=== PATIENT | female | born 1940 | race Caucasian/White ===

== ENCOUNTER → 2016-11-04 09:55 | Outpatient (CLI) | payer MEDICARE ==
[2015-07-19 12:18] VITALS: BMI 23.0
[~2016-11-04 09:55] MED LIST: ADVIL200 MG PO; CALCIUM 500 + D1 TAB PO; HYDROCHLOROTHIA25 MG PO; MEDROL DOSE PACK4 MG PO; PRILOSEC20 MG PO; TESSALON PERLE100 MG PO; VITAMIN B-121000 MCG PO; VITAMIN D31000 UNIT PO; ZOCOR20 MG PO; ZOLOFT100 MG PO
== END | disposition home or self-care (01) ==
LOC: D.CT 09:00 → D.MRI 09:55 → D.CT 10:30
DX: R42 Dizziness and giddiness (principal); Z86.73 Personal history of transient ischemic attack (TIA), and cerebral infarction without residual deficits

== ENCOUNTER → 2016-12-18 07:54 | Outpatient (CLI) | payer MEDICARE ==
[2015-07-19 12:18] VITALS: BMI 23.0
== END ==
LOC: D.MRI 07:54
DX: R16.0 Hepatomegaly, not elsewhere classified (principal)

== ENCOUNTER 2016-12-24 05:31 | Outpatient (CLI) | payer MEDICARE ==
[~2016-12-24] VITALS: Ht 160 cm; Wt 60.5 kg
[2016-12-24] MEDS ORDERED: BAYER CHEWABLE81 MG PO (06:19)
[2016-12-24] MEDS ORDERED: PLAVIX75 MG PO (06:19)
[2016-12-24 06:20] LABS: BASOPHILS 0.5 % (0-2); EOSINOPHILS 3.5 % (0-7); HEMATOCRIT 37.4 % (36.0-48.0); HEMOGLOBIN 12.1 g/dL (12-16); LYMPHOCYTES 27.1 % (15-50); MCH 29.4 pg (26.0-34.0); MCHC 32.4 g/dL (31.0-37.0); MEAN PLATELET VOLUME 10.9 fL (7.4-10.4); MONOCYTES 11.8 % (2-11); NEUTROPHILS 57.1 % (40-80); PLATELET COUNT 191 10x3/uL (130-400); RBC 4.11 10x6/uL (4.00-5.40); RDW 13.2 % (11.5-14.5); WBC 4.3 10x3/uL (4.8-10.8)
[2016-12-24] MEDS ORDERED: ZOFRAN4 MG PO (06:21)
[2016-12-24] MEDS ORDERED: CELEXA10 MG PO (06:21)
[2016-12-24] MEDS ORDERED: ACETAMINOPHEN325 MG PO (06:22)
[2016-12-24 06:29] VITALS: BP 137/67; Ht 160 cm; Wt 60.5 kg
[2016-12-24 06:31] LABS: APTT 32.4 SECONDS (22.8-39.4)
[2016-12-24 06:33] LABS: CALCIUM 10.3 mg/dL (8.5-10.1); CARBON DIOXIDE 30.6 mmol/L (21.0-32.0); CREATININE - SERUM 0.8 mg/dL (0.6-1.3); POTASSIUM - SERUM 3.6 mmol/L (3.5-5.1)
[2016-12-24 06:48] LABS: INR 0.96 (0.85-1.17); PROTIME 12.6 SECONDS (11.6-15.0)
--- NOTE | 2016-12-24 09:31 | NUR ---
0900--ALL VITAL SIGNS CHARTED ON POST PROCEDURE VITAL SIGN SHEET ON CHART. JD ESCALONA
--- NOTE | 2016-12-24 09:44 | NUR ---
0910--PT REPORTS BEING NAUSEATED AFTER REPOSTIONING IN BED, LIBBY SHEPPARD RN CALLED AND REPORT GIVEN. NEW ORDER RECIEVED. JD ESCALONA 0918--ZOFRAN 4MG GIVEN SIVP. JD ESCALONA 0929--BREAKFAST TRAY SERVED, PT ENCOURAGED TO EAT VERY SLOW. WILL CONTINUE TO MONITOR. JD ESCALONA
--- NOTE | 2016-12-24 12:26 | NUR ---
1205--PT UP TO THE BATHROOM, VOIDS WITHOUT DIFFICULTY. WILL CONTINUE TO MONITOR. ELIZABETHRAMURIEL RN
--- NOTE | 2016-12-24 12:56 | NUR ---
1255--IV DC'D, PT UP TO DRESS AT THIS TIME. JD RN
--- NOTE | 2016-12-24 13:08 | NUR ---
1307--DISCHARGE INSTRUCTIONS GIVEN, PT VERBALIZES UNDERSTANDING. PT OFF UNIT VIA KYLE. JD ESCALONA
[2016-12-25] MEDS ORDERED: ZOLOFT25 MG PO (01:01)
== END 2016-12-24 13:07 | disposition home or self-care (01) ==
LOC: D.OPS 05:31 → D.CT 08:00 → D.OPS 08:00
PROVIDERS: Specialist
DX: R16.0 Hepatomegaly, not elsewhere classified (principal)

== ENCOUNTER 2016-12-24 14:46 | Inpatient (IN) | payer MEDICARE ==
[~2016-12-24] VITALS: Ht 172.7 cm; Wt 78.0 kg
--- NOTE | ~2016-12-24 | CN ---
PATIENT NAME:LETICIA MONROY MEDICAL RECORD: [id number] : 36 LOCATION:BUD.2308 ADMIT DATE: 12/24/16 ACCOUNT: [id number] CONSULTING PHYSICIAN: REDDY SCOTT MD REFERRING PHYSICIAN: LUDA DORSEY DO DATE OF CONSULTATION: 12/25/2016 CONSULT REQUESTING PHYSICIAN: Luda Dorsey DO REASON FOR CONSULTATION: Questionable PE. HISTORY OF PRESENT ILLNESS: Ms. Monroy is a 76-year-old female, who has a history of COPD, not home oxygen dependent. The patient having a fall yesterday and having fractured left hip, she underwent a hip fixation today. Postop, the patient was severely hypoxic and PE was suspected. Now, the patient is awake, but she is confused post-anesthesia. The history was taken mainly by talking to the nursing staff and reviewing the patient note. REVIEW OF SYSTEMS: As in history of present illness. PAST MEDICAL HISTORY: 1. History of breast cancer. 2. Coronary artery disease. 3. Anxiety, depression. 4. History of liver mass. 5. Chronic obstructive pulmonary disease. PAST SURGICAL HISTORY: 1. She had a cataract surgery. 2. Mastectomy 25 years ago. 3. She is status post liver biopsy. 4. Now, she is status post left ORIF. ALLERGIES: There are no known drug allergies. PRESENT MEDICATIONS: On [employer] was reviewed. PERSONAL AND SOCIAL HISTORY: The patient is an ex-smoker. She is a nondrinker. She is , lives with her . FAMILY HISTORY: Noncontributory. PHYSICAL EXAMINATION: GENERAL: Now, the patient is lying comfortably. She is not in acute distress. VITAL SIGNS: The blood pressure is 142/59, pulse is 96, respirations 26, temperature 98.4 and SPO2 is 93% on 15 liters Venturi mask. HEENT: Conjunctivae are pink. Sclerae nonicteric. NECK: Supple. No JVD. CHEST: There are bilateral crackles, wheeze on forceful expiration. HEART: Rhythm regular, normal sound, no murmur. ABDOMEN: Soft. Bowel sounds present. No hepatosplenomegaly. RECTAL: Deferred. EXTREMITIES: No cyanosis, no clubbing and no pedal edema. SKIN: Warm, normal turgor. CENTRAL NERVOUS SYSTEM: There is no obvious cranial nerve abnormality. The CONSULT REPORT [id number] LETICIA MONROY patient is awake, but she is confused post-anesthesia. LABORATORY DATA: CBC: The WBC is 7.8, hemoglobin 11.3, hematocrit 34.7 and the platelet count is 165. Chemistry: Sodium 142, potassium 3.4, BUN is 14, creatinine is 0.6 and glucose 115. IMPRESSION: 1. Acute hypoxic respiratory failure, possible secondary to pulmonary edema, possible underlying pneumonia, rule out pulmonary embolism. 2. Blood loss anemia. 3. Chronic obstructive pulmonary disease with acute exacerbation. 4. Status post left open reduction and internal fixation. RECOMMENDATIONS: 1. Albuterol and ipratropium nebulizer q.i.d., start on Brovana and budesonide nebulizer. 2. Start her on empiric doxycycline 100 mg b.i.d. 3. Lasix 40 mg IV times 1. 4. We will check the CTA of the chest, if it is positive, we will start her on Lovenox. Dr. Milligan, thank you for involving me in the care of Ms. Monroy. TRANSINT:[id number] Voice Confirmation ID: [id number] DOCUMENT ID: [id number] REDDY SCOTT MD CC: NELSON MILLIGAN MD [id number] DICTATION DATE: 12/25/161734 FLORICULTURE TEACHER: 12/26/16 0147 ADM IN [facility] [address] [place] [address]
--- NOTE | ~2016-12-24 | EC ---
PATIENT:LETICIA FLETCHER DATE OF SERVICE: 12/24/16 SEX: F MEDICAL RECORD: [id number] DATE OF : 36 LOCATION:[facility] D230 AGE OF PATIENT: 76 ADMISSION DATE: 12/24/16 REFERRING PHYSICIAN: INTERPRETING PHYSICIAN: JOEL MATA MD ECHOCARDIOGRAM REPORT ECHO CHARGES 4 ECHO COMPLETE CLINICAL DIAGNOSIS: RESP FAILURE HX HTN ECHOCARDIOGRAPHIC MEASUREMENTS (adult normal given) AC root (d.<3.7cm) 3.3 LV Septum d (<1.2 cm> 1.6 Valve Excursion 1.8 LV Septum (systole) 1.8 Left Atria (s.<4.0cm> 3.7 LVPW d(<1.2cm) 1.6 RV (d.<2.3cm) 3.2 LVPW (sytole) 1.9 LV diastole(<5.6CM) 3.8 MV E-F(>70mm/sec) LV systole 2.4 LVOT Diameter 1.8 MV exc.(>10mm) 1.3 Est.ejection fraction (50-75%) Pericardial Effusion N DOPPLER: LVIT A 140 E 86.0 LA RVSP 33 LVOT 105 AOP1/2T Asc. Ao 156 RVOT 119 RA PA 158 AV Gradient Peak 9.73 AV Mean 4.70 AV Area 1.9 MV Gradient Peak 7.64 MV Mean 2.69 MV Area COMMENTS: Inspecting And Testing Lead Hand: Tasha ROSS Stock Speculator:Jackie Mata TAPE# PACS DATE OF SERVICE: 12/26/2016 FINDINGS: 1. Left ventricular chamber size is within normal limits. Left ventricular systolic function is normal. Overall ejection fraction estimated at 65%. 2. Left atrium, right atrium, and right ventricular chamber sizes are within normal limits. 3. Valvular structures have normal structure and motion. 4. Doppler interrogation reveals only mild tricuspid regurgitation, no other valvular insufficiency or stenosis. ECHOCARDIOGRAM REPORT [id number] LETICIA FLETCHER 5. No evidence of pericardial effusion or left ventricular thrombus. TRANSINT:[id number] Voice Confirmation ID: [id number] DOCUMENT ID: [id number] JOEL MATA MD CC: [id number] DICTATION DATE: 12/26/16 1309 REGISTRATION MANAGER: 12/26/16 1336 ADM IN [place] [address] [place] [address]
[~2016-12-24 14:46] MED LIST changes: +ACETAMINOPHEN325 MG PO; +BAYER CHEWABLE81 MG PO; +CELEXA10 MG PO; +PLAVIX75 MG PO; +ZOFRAN4 MG PO
[2016-12-24 16:56] LABS: BASOPHILS 0.2 % (0-2); EOSINOPHILS 0.7 % (0-7); HEMATOCRIT 38.1 % (36.0-48.0); HEMOGLOBIN 12.5 g/dL (12-16); IMMATURE GRANULOCYTES 0.2 % (0-5); LYMPHOCYTES 8.2 % (15-50); MCH 29.8 pg (26.0-34.0); MCHC 32.8 g/dL (31.0-37.0); MCV 90.9 fL (80.0-100.0); MEAN PLATELET VOLUME 9.7 fL (7.4-10.4); MONOCYTES 5.4 % (2-11); NEUTROPHILS 85.3 % (40-80); PLATELET COUNT 198 10x3/uL (130-400); RBC 4.19 10x6/uL (4.00-5.40); RDW 13.3 % (11.5-14.5)
[2016-12-24 17:02] LABS: WBC 9.1 10x3/uL (4.8-10.8)
[2016-12-24 17:34] LABS: ALBUMIN 3.6 g/dL (3.4-5.0); ALKALINE PHOSPHATASE 96 U/L (46-116); ALT (SGPT) 17 U/L (10-68); BILIRUBIN - TOTAL 0.31 mg/dL (0.2-1.3); CALC OSMOLALITY 283 mosm/kg (275-300); CALCIUM 9.8 mg/dL (8.5-10.1); CARBON DIOXIDE 27.7 mmol/L (21.0-32.0); CHLORIDE - SERUM 104 mmol/L (98-107); CREATININE - SERUM 0.7 mg/dL (0.6-1.3); GLUCOSE 112 mg/dL (74-106); POTASSIUM - SERUM 3.3 mmol/L (3.5-5.1); PROTEIN - SERUM 7.1 g/dL (6.4-8.2); SODIUM 141 mmol/L (136-145); UREA NITROGEN 19 mg/dL (7-18); eGFR NON AFRICAN AMERICAN 86 mL/min (90-120)
[2016-12-24 17:43] LABS: APTT 37.8 SECONDS (22.8-39.4); INR 0.95 (0.85-1.17); PROTIME 12.5 SECONDS (11.6-15.0)
[2016-12-24 17:50] LABS: APPEARANCE CLEAR (CLEAR); BILIRUBIN NEGATIVE (NEGATIVE); COLOR YELLOW (YELLOW); GLUCOSE NEGATIVE (NEGATIVE); KETONE NEGATIVE (NEGATIVE); LEUKOCYTE ESTERASE NEGATIVE (NEGATIVE); NITRITE NEGATIVE (NEGATIVE); PROTEIN TRACE mg/dL (NEGATIVE); UROBILINOGEN NORMAL (NORMAL)
[2016-12-24 17:51] LABS: EPITHELIAL CELLS 0-5 /hpf (0-5); WHITE CELLS - URINE 0-5 /hpf (0-5)
[2016-12-24 17:53] LABS: BACTERIA FEW /hpf (NONE SEEN)
[2016-12-24 20:00] VITALS: BP 149/68
[2016-12-24 23:35] VITALS: BP 160/63; BMI 26.2
[2016-12-25] VITALS (15 sets, daily range): BP systolic 122–159; BP diastolic 50–78; Ht 172.7 cm; Wt 78.0 kg
--- NOTE | 2016-12-25 01:00 | NUR ---
PT RESTLESS AND ANXIOUS. PULLED OUT RIGHT FOREARM IV. RESITED TO RIGHT AC BY IQRA MCGUIRE. PIPE FITTER SUPERVISOR MAINTENANCE AND ICE FOR PAIN CONTROL. REPOSITIONED AND TURNED PT. NO OTHER NEEDS WILL CONTINUE TO MONITOR.
[2016-12-25] MEDS ORDERED: ZOLOFT25 MG PO (01:01)
--- NOTE | 2016-12-25 08:08 | NUR ---
AWAKE AND ALERT. ORIENTED X3. C/O SOME PAIN THIS AM TO LEFT HIP. ENCOURAGED TO USE ALTERNATIVE ENERGY TECHNICIAN FOR PAIN MANAGEMENT. LUNGS ARE CLEAR BILATERLLY, NO COUGH NOTED. SKIN IS INTACT WITHOUT REDNESS. IV TO RIGHT AC IS PATENT WITHOUT REDNESS AT INSERTION SITE. BANG PATENT WITH CLEAR YELLOW URINE. DENIES NEEDS. VERY HUNGRY THIS AM.
--- NOTE | 2016-12-25 09:51 | NUR ---
TOOK AM MEDS WITH SMALL SIP WATER. HAD DRY HEAVES AFTERWARDS. NO C/O NAUSEA AT THIS TIME.
[2016-12-25 10:04] LABS: BASOPHILS 0.3 % (0-2); HEMATOCRIT 34.7 % (36.0-48.0); HEMOGLOBIN 11.3 g/dL (12-16); IMMATURE GRANULOCYTES 0.3 % (0-5); LYMPHOCYTES 8.5 % (15-50); MCH 29.6 pg (26.0-34.0); MCHC 32.6 g/dL (31.0-37.0); MCV 90.8 fL (80.0-100.0); MEAN PLATELET VOLUME 10.3 fL (7.4-10.4); MONOCYTES 8.6 % (2-11); NEUTROPHILS 81.3 % (40-80); PLATELET COUNT 165 10x3/uL (130-400); RBC 3.82 10x6/uL (4.00-5.40); RDW 13.5 % (11.5-14.5); WBC 7.8 10x3/uL (4.8-10.8)
[2016-12-25 10:23] LABS: ALBUMIN 3.2 g/dL (3.4-5.0); ALKALINE PHOSPHATASE 77 U/L (46-116); ALT (SGPT) 16 U/L (10-68); CALC OSMOLALITY 284 mosm/kg (275-300); CALCIUM 9.9 mg/dL (8.5-10.1); CARBON DIOXIDE 30.2 mmol/L (21.0-32.0); CHLORIDE - SERUM 106 mmol/L (98-107); CREATININE - SERUM 0.6 mg/dL (0.6-1.3); GLUCOSE 115 mg/dL (74-106); POTASSIUM - SERUM 3.4 mmol/L (3.5-5.1); PROTEIN - SERUM 7.1 g/dL (6.4-8.2); SODIUM 142 mmol/L (136-145); eGFR NON AFRICAN AMERICAN > 90 mL/min (90-120)
[2016-12-25 10:28] LABS: UREA NITROGEN 14 mg/dL (7-18)
--- NOTE | 2016-12-25 12:11 | NUR ---
RESTING QUIETLY WITH EYES CLOSED. DENIES NEEDS.
--- NOTE | 2016-12-25 13:50 | NUR ---
OFF UNIT VIA BED TO SURGERY.
--- NOTE | 2016-12-25 16:38 | NUR ---
PATIENT HERE FROM RECOVERY. SHE IS ALERT AND CONFUSED. BLOOD CAME WITH PATIENT THAT WAS CHECKED FROM THE LAB AT 1452. SPOKE WITH TERESA IN THE BLOOD BANK WHO SAID THAT THE BLOOD DOES NOT AND CAN STILL BE GIVEN EVEN THOUGH OUR POLICY IS TO HAVE IN IN 4 HOURS FROM PICKUP. WILL CHECK OFF THE BLOOD WITH CHANDLER AND HANG IT.
--- NOTE | 2016-12-25 16:55 | NUR ---
PATIENTS UNIT OF BLOOD ([id number]) STARTED AFTER SAFETY CHECK WITH IQRA ARTEAGA TO A NEWLY STARTED 20G IV IN THE RIGHT OUTTER FOREARM. PATIENT AND SPOUSE DENIES QUESTIONS. PATIENT IS C/O PAIN TO HER HIP WILL LOOK AT PRN MEDICATIONS. THERE IS ICE IN PLACE TO AN INTACT DRESSING TO LEFT HIP. VENTIMASK AT 55% IN USE, SATS HOLDING AROUND 96%. LUNGS WITH END EXPIRATORY WHEEZES. NONPRODUCTIVE COUGH NOTED. HAVE SPOKE WITH DR SCOTT, NEW ORDERS RECEIVED.
--- NOTE | 2016-12-25 19:00 | NUR ---
ASSESSMENT COMPLETED. SEE FLOW SHEETS FOR ALL FINDINGS. PT ALERT AND ORIENTED X3, BUT CONFUSED WITH SITUATION. REORIENTED. C/O PAIN TO LEFT HIP. REPOSITIONED FOR COMFORT. ACTIVITIES LEADER PUMP STARTED PER ORDER. INSTRUCTED PT TO PUSH WHEN SHE NEEDS FOR PAIN. VERBALIZED UNDERSTANDING. LEFT HIP DRESSING C,D. ICE PACK APPLIED. PPP. CALL LIGHT IN REACH. WILL CONT TO MONITOR.
--- NOTE | 2016-12-25 21:10 | NUR ---
NO VISITORS AT THIS TIME, WILL CON'T TO MONITOR
--- NOTE | 2016-12-25 23:10 | NUR ---
REASSESSMENT COMPLETE, NO CHANGES NOTED, PT REPOSITIONED FOR COMFORT, NO OTHER NEEDS NOTED, WILL CON'T TO MONITOR
[2016-12-26] VITALS (18 sets, daily range): BP systolic 99–147; BP diastolic 45–69
--- NOTE | 2016-12-26 01:00 | NUR ---
PT RESTING QUIETLY WITHOUT DISTRESS. VSS. REPOSITIONED FOR COMFORT. CALL LIGHT IN REACH. CPOC.
--- NOTE | 2016-12-26 03:00 | NUR ---
REASSESSMENT COMPLETED. SEE FLOW SHEETS FOR ALL FINDINGS. VSS. NO ACUTE CHANGES IN PT'S STATUS. REPOSITIONED FOR COMFORT. PILLOWS IN USE FOR SUPPORT. CALL LIGHT IN REACH. WILL CONT TO MONITOR.
[2016-12-26 04:50] LABS: BASOPHILS 0.3 % (0-2); EOSINOPHILS 0.5 % (0-7); HEMATOCRIT 35.3 % (36.0-48.0); HEMOGLOBIN 11.5 g/dL (12-16); IMMATURE GRANULOCYTES 0.3 % (0-5); LYMPHOCYTES 9.3 % (15-50); MCH 29.6 pg (26.0-34.0); MCHC 32.6 g/dL (31.0-37.0); MEAN PLATELET VOLUME 10.5 fL (7.4-10.4); MONOCYTES 10.6 % (2-11); PLATELET COUNT 146 10x3/uL (130-400); RBC 3.88 10x6/uL (4.00-5.40); RDW 13.4 % (11.5-14.5); WBC 7.9 10x3/uL (4.8-10.8)
--- NOTE | 2016-12-26 05:00 | NUR ---
REPOSITIONED PT FOR COMFORT. PT SCREAM OUTLOUD WITH ANY TURN. ENCOUREGED TO PRESS ON HYDRAULIC ELEVATOR CONSTRUCTOR. PT USED HYDRAULIC ELEVATOR CONSTRUCTOR PUSH. VSS.CPOC.
[2016-12-26 05:02] LABS: ALBUMIN 3.2 g/dL (3.4-5.0); ALKALINE PHOSPHATASE 78 U/L (46-116); ALT (SGPT) 17 U/L (10-68); BILIRUBIN - TOTAL 0.58 mg/dL (0.2-1.3); CALC OSMOLALITY 275 mosm/kg (275-300); CALCIUM 9.5 mg/dL (8.5-10.1); CHLORIDE - SERUM 99 mmol/L (98-107); CREATININE - SERUM 0.7 mg/dL (0.6-1.3); GLUCOSE 117 mg/dL (74-106); PROTEIN - SERUM 6.5 g/dL (6.4-8.2); SODIUM 138 mmol/L (136-145); UREA NITROGEN 10 mg/dL (7-18); eGFR NON AFRICAN AMERICAN 86 mL/min (90-120)
--- NOTE | 2016-12-26 07:00 | NUR ---
REPORT RECEIVED. ASSESSMENT COMPLETED. PATIENT SATING 84% ON ROOM AIR. WITH ENCOURAGEMENT, PATIENT ALLOWED ME TO PUT HER OXYGEN BACK ON AND HER SATS INCREASED TO 94%. WILL CONTINUE TO MONITOR.
--- NOTE | 2016-12-26 13:37 | NUR ---
PATIENT WAS TURNED TO HER RIGHT SIDE AND IN LESS THAN 10 MINUTES, SHE HAS REMOVED THE PILLOW AND IS BACK ON HER BACK. WILL CONTINUE TO EXPLAIN THE IMPORTANCE OF TURNING AND TRYING TO TURN AND KEEP HER TURNED.
--- NOTE | 2016-12-26 15:45 | NUR ---
REPORT CALLED TO IQRA NINO ON MED SURG. SHE WILL TRANSFER VIA BED TO ROOM 2236.
--- NOTE | 2016-12-26 16:50 | NUR ---
SPOKE WITH MR FLETCHER. EXPLAINED THAT THE PATIENT WAS BEING TRANSFERED OUT TO THE FLOOR. HE STATED HE WOULD BE UP AROUND 6 AND HER NEW ROOM NUMBER WAS GIVEN TO HIM.
--- NOTE | 2016-12-26 17:29 | NUR ---
PATIENT RECEIVED TO FLOOR FROM ICU VIA BED. NO SIGNS OF DISTRESS NOTED. ORIENTED TO ROOM. YELLOW FALL RISK BAND PLACED ON PATIENT. SCD ON BILATERALLY. BED ALARM ON. FAMILY AT BEDSIDE. SIDE RAILS UP X2. BED IN LOW POSITION. CALL LIGHT IN REACH.
--- NOTE | 2016-12-26 19:25 | NUR ---
PT RESTING WITH EYES CLOSED, EASILY AROUSED, ASSESSMENT COMPLETED, NO ACUTE DISTRESS NOTED, NC AND SCD'S IN PLACE, BED ALARM ON, CL IN REACH, WILL MONITOR
--- NOTE | 2016-12-26 21:12 | NUR ---
MEDS GIVEN PER MAR, SUHAIL WELL, FALL PRECAUTIONS IN PLACE, CL IN REACH
[2016-12-27] VITALS: BP 140/60
[2016-12-27 04:00] VITALS: BP 121/45
[2016-12-27 07:03] LABS: BASOPHILS 0.1 % (0-2); EOSINOPHILS 1.1 % (0-7); HEMATOCRIT 32.8 % (36.0-48.0); HEMOGLOBIN 10.7 g/dL (12-16); IMMATURE GRANULOCYTES 0.3 % (0-5); LYMPHOCYTES 8.7 % (15-50); MCH 29.4 pg (26.0-34.0); MCHC 32.6 g/dL (31.0-37.0); MCV 90.1 fL (80.0-100.0); MEAN PLATELET VOLUME 10.7 fL (7.4-10.4); MONOCYTES 9.6 % (2-11); NEUTROPHILS 80.2 % (40-80); PLATELET COUNT 152 10x3/uL (130-400); RBC 3.64 10x6/uL (4.00-5.40); RDW 13.3 % (11.5-14.5); WBC 7.3 10x3/uL (4.8-10.8)
[2016-12-27 07:25] LABS: ALBUMIN 2.4 g/dL (3.4-5.0); ALKALINE PHOSPHATASE 70 U/L (46-116); ALT (SGPT) 14 U/L (10-68); BILIRUBIN - TOTAL 0.58 mg/dL (0.2-1.3); CALC OSMOLALITY 272 mosm/kg (275-300); CALCIUM 9.5 mg/dL (8.5-10.1); CARBON DIOXIDE 31.3 mmol/L (21.0-32.0); CHLORIDE - SERUM 99 mmol/L (98-107); CREATININE - SERUM 0.6 mg/dL (0.6-1.3); GLUCOSE 148 mg/dL (74-106); PHOSPHOROUS 2.2 mg/dL (2.5-4.9); PROTEIN - SERUM 6.3 g/dL (6.4-8.2); SODIUM 136 mmol/L (136-145); UREA NITROGEN 8 mg/dL (7-18); eGFR NON AFRICAN AMERICAN > 90 mL/min (90-120)
[2016-12-27 07:26] LABS: POTASSIUM - SERUM 2.8 mmol/L (3.5-5.1)
--- NOTE | 2016-12-27 07:35 | NUR ---
PATIENT RESTING IN HER BED. NO S/S OF DISTRESS NOTED. BED ALARM IN PLACE. CALL LIGHT IN PATIENT'S REACH. WILL MONITOR PATIENT.
[2016-12-27 08:39] VITALS: BP 120/49
[2016-12-27 13:11] VITALS: BP 123/43
--- NOTE | 2016-12-27 14:05 | NUR ---
PATIENT IS RESTING IN HER BED. EYES ARE CLOSED. NO S/S OF DISTRESS NOTED. CALL LIGHT IN PATIENT'S REACH. BED ALARM IN PLACE. WILL MONITOR PATIENT.
--- NOTE | 2016-12-27 15:15 | NUR ---
Rehab Prescreening Consult recieved and the chart has been reviewed. She meet criteria for IRF. In light of her post op complication rehab would like to watch her another 24 hours. If she remains stable and is agreeable will plan on acceptance to rehab on Thursday afternoon or Thursday. Thank you for the referral. Christina Baez RN Clinical Liaison, Rehab
--- NOTE | 2016-12-27 15:24 | NUR ---
PATIENT RESTING IN BED. SCHEDULED LASIX 20 MG PO GIVEN TO PATIENT. PATIENT STATES SHE HAS NOT BEEN PRESSING HER FUR EXAMINER DILAUDID BUTTON FOR PAIN.. INSTRUCTED PATIENT ON HER FUR EXAMINER DILAUDID USE. PATIENT VERBALIZED UNDERSTANDING AND SHE PRESSED HER FUR EXAMINER BUTTON. PATIENT DENIES ANY NEEDS AT PRESENT TIME. CALL LIGHT IN PATIENT'S REACH. WILL MONITOR.
[2016-12-27 16:44] VITALS: BP 116/55
[2016-12-27 19:00] VITALS: BP 113/42
--- NOTE | 2016-12-27 20:00 | NUR ---
REC'D IN BED WITH EYES CLOSED EASILY AROUSED WHEN NAME IS CALLED. RESP EVEN AND UNLABORED WITH NO DISTRESS NOTED. ASSESSMENT COMPLETED. C/L IN REACH AT BEDSIDE.
--- NOTE | 2016-12-28 00:29 | NUR ---
PATIENT RESTING WITH EYES CLOSED AND NO VISIBLE SIGNS OF DISTRESS. BED IN LOWEST POSITION AND CALL LIGHT WITHIN REACH.
[2016-12-28 04:00] VITALS: BP 137/59
[2016-12-28 06:14] LABS: BASOPHILS 0.3 % (0-2); EOSINOPHILS 1.9 % (0-7); HEMATOCRIT 30.5 % (36.0-48.0); HEMOGLOBIN 9.8 g/dL (12-16); IMMATURE GRANULOCYTES 0.2 % (0-5); LYMPHOCYTES 11.7 % (15-50); MCH 29.1 pg (26.0-34.0); MCHC 32.1 g/dL (31.0-37.0); MCV 90.5 fL (80.0-100.0); MEAN PLATELET VOLUME 10.4 fL (7.4-10.4); MONOCYTES 14.7 % (2-11); NEUTROPHILS 71.2 % (40-80); RBC 3.37 10x6/uL (4.00-5.40); RDW 13.6 % (11.5-14.5); WBC 5.8 10x3/uL (4.8-10.8)
[2016-12-28 06:18] LABS: PLATELET COUNT 184 10x3/uL (130-400)
[2016-12-28 06:36] LABS: ALBUMIN 2.3 g/dL (3.4-5.0); ALKALINE PHOSPHATASE 87 U/L (46-116); CALC OSMOLALITY 277 mosm/kg (275-300); CALCIUM 9.6 mg/dL (8.5-10.1); CARBON DIOXIDE 32.9 mmol/L (21.0-32.0); CHLORIDE - SERUM 102 mmol/L (98-107); CREATININE - SERUM 0.7 mg/dL (0.6-1.3); GLUCOSE 115 mg/dL (74-106); MAGNESIUM - SERUM 1.9 mg/dL (1.8-2.4); PHOSPHOROUS 2.6 mg/dL (2.5-4.9); PROTEIN - SERUM 6.2 g/dL (6.4-8.2); SODIUM 140 mmol/L (136-145); UREA NITROGEN 8 mg/dL (7-18); eGFR NON AFRICAN AMERICAN 86 mL/min (90-120)
[2016-12-28 06:39] LABS: ALT (SGPT) 18 U/L (10-68); POTASSIUM - SERUM 3.3 mmol/L (3.5-5.1)
--- NOTE | 2016-12-28 08:00 | NUR ---
EDUCATED PATIENT ON USING INCENTIVE SPIROMETER. PATIENT DEMONSTRATED, BROUGHT IT UP TO THE 1500ML KARLOS. EDUCATED PATIENT ON BLADDER TRAINING. CLAMPED BANG CATHETER. TURNED OFF PAPER PRODUCTS MACHINE OPERATOR. TOLD PATIENT TO CALL WHEN SHE FEELS THE URGE TO URINATE.
[2016-12-28 08:14] VITALS: BP 124/58
--- NOTE | 2016-12-28 11:00 | NUR ---
PATIENT STATED SHE NEEDS TO URINATE, GRANADO, ADMINISTRATIVE INTERN UNCLAMPED BANG CATHETER.
--- NOTE | 2016-12-28 11:08 | NUR ---
NORCO PO WITH AM MEDS ADMINISTERED. DR. DORSEY IS IN ROOM TO SEE PATIENT
[2016-12-28] MEDS ORDERED: ALBUTEROL2.5 MG/3 M UPD (11:30)
[2016-12-28] MEDS ORDERED: BROVANA15 MCG/2 M INH (11:30)
[2016-12-28] MEDS ORDERED: IPRAT-ALBUT 0.5-3 ML UPD (11:30)
[2016-12-28] MEDS ORDERED: HYDROCODONE-APA1 TAB PO (11:31)
[2016-12-28] MEDS ORDERED: ELIQUIS2.5 MG PO (11:31)
[2016-12-28] MEDS ORDERED: COLACE100 MG PO (11:32)
[2016-12-28] MEDS ORDERED: PULMICORT0.5 MG/21 UPD (11:32)
[2016-12-28] MEDS ORDERED: LASIX20 MG PO (11:32)
[2016-12-28 12:41] VITALS: BP 131/44
--- NOTE | 2016-12-28 17:00 | NUR ---
D/C BANG CATHETER. D/C IV FROM RIGHT FOREARM WITH CATHETER INTACT. D/C IV FROM RIGHT AC WITH CATHETER INTACT. CHANGED DRESSING TO LEFT HIP, APPLIED AQUACEL DRESSING. DISCHARGE INSTRUCTIONS COMPLETED WITH PATIENT. PATIENT VERBALIZED UNDERSTANDING AND DENIES QUESTIONS.
--- NOTE | 2016-12-28 17:30 | NUR ---
CALLED REPORT TO JANET IN REHAB
--- NOTE | 2016-12-28 18:40 | NUR ---
TRANSFERED PATIENT TO REHAB VIA BED
== END 2016-12-28 18:45 | DRG 480 ==
LOC: D.ER 14:46 → D.ICU 17:21 → D.MS 17:21 → D.ICU 12-25 16:22 → D.MS 12-26 17:10
PROVIDERS: Internal Medicine Pulmonary Disease; Nurse Practitioner Acute Care; Orthopaedic Surgery; ADMIT Family Medicine
PROC: 0QS704Z Reposition Left Upper Femur with Internal Fixation Device, Open Approach (ICD-10-PCS; principal; 2016-12-25 12:15)
DX: S72.002A Fracture of unspecified part of neck of left femur, initial encounter for closed fracture (principal); J96.01 Acute respiratory failure with hypoxia; J44.1 Chronic obstructive pulmonary disease with (acute) exacerbation; D62 Acute posthemorrhagic anemia; F05 Delirium due to known physiological condition; W18.30XA Fall on same level, unspecified, initial encounter; M85.80 Other specified disorders of bone density and structure, unspecified site; Z85.3 Personal history of malignant neoplasm of breast; F41.9 Anxiety disorder, unspecified; I25.10 Atherosclerotic heart disease of native coronary artery without angina pectoris; F32.9 Major depressive disorder, single episode, unspecified; E78.5 Hyperlipidemia, unspecified

== ENCOUNTER 2016-12-28 13:46 | Inpatient (IN) | payer MEDICARE ==
[~2016-12-28] VITALS: Ht 172.7 cm; Wt 60.3 kg
[~2016-12-28 13:46] MED LIST changes: +ALBUTEROL2.5 MG/3 M UPD; +BROVANA15 MCG/2 M INH; +COLACE100 MG PO; +ELIQUIS2.5 MG PO; +HYDROCODONE-APA1 TAB PO; +IPRAT-ALBUT 0.5-3 ML UPD; +LASIX20 MG PO; +PULMICORT0.5 MG/21 UPD; +ZOLOFT25 MG PO
--- NOTE | 2016-12-28 19:10 | NUR ---
IN BED, AWAKE. DENIES CURRENT PAIN OR OTHER NEEDS.
[2016-12-28 19:49] VITALS: BP 119/55; BMI 20.2
--- NOTE | 2016-12-28 21:00 | NUR ---
RESTING IN BED, EYES CLOSED.
--- NOTE | 2016-12-28 23:45 | NUR ---
HS MEDS GIVEN TO PATIENT AT 2315. C/O PAIN LEVEL OF 5/10 IN LEFT HIP AT REST. DEMONSTRATES HIGH LEVEL PAIN WHEN TRANSFERRING. GAVE PATIENT NORCO X1 TAB PO FOR HER PAIN. ADMISSION ASSESSMENT AND HISTORY ARE NOW COMPLETE. ADMISSION DOCUMENTS ARE SIGNED.
--- NOTE | 2016-12-29 02:10 | NUR ---
CONTINUES IN BED ON RIGHT SIDE. RESTING QUIETLY.
--- NOTE | 2016-12-29 04:10 | NUR ---
RESTING QUIETLY IN BED, AFTER ASSIST UP TO BR COMMODE AND BACK TO BED @ 0350. PATIENT NOW ON BACK WITH HOB UP 15 DEGREES. FOLDED PILLOW PLACED BETWEEN LEGS FOR ABDUCTION. HEELS BRIDGED FOR PRESSURE RELIEF. CONTINUES WITH SCD'S TO BILAT LE'S. RESPIRATIONS UNLABORED.
--- NOTE | 2016-12-29 05:50 | NUR ---
PATIENT HAS BEEN RESTING QUIETLYSINCE 0410. HAS JUST ARRIVED WITH CLOTHES FOR HER.
[2016-12-29 06:36] LABS: BASOPHILS 0.2 % (0-2); EOSINOPHILS 3.5 % (0-7); HEMATOCRIT 29.5 % (36.0-48.0); HEMOGLOBIN 9.4 g/dL (12-16); IMMATURE GRANULOCYTES 0.2 % (0-5); LYMPHOCYTES 14.7 % (15-50); MCH 28.9 pg (26.0-34.0); MCHC 31.9 g/dL (31.0-37.0); MCV 90.8 fL (80.0-100.0); MEAN PLATELET VOLUME 10.2 fL (7.4-10.4); MONOCYTES 12.7 % (2-11); NEUTROPHILS 68.7 % (40-80); PLATELET COUNT 217 10x3/uL (130-400); RBC 3.25 10x6/uL (4.00-5.40); RDW 13.4 % (11.5-14.5); WBC 6.1 10x3/uL (4.8-10.8)
[2016-12-29 06:57] LABS: CALC OSMOLALITY 282 mosm/kg (275-300); CARBON DIOXIDE 31.5 mmol/L (21.0-32.0); CHLORIDE - SERUM 105 mmol/L (98-107); CREATININE - SERUM 0.6 mg/dL (0.6-1.3); GLUCOSE 107 mg/dL (74-106); POTASSIUM - SERUM 3.4 mmol/L (3.5-5.1); SODIUM 142 mmol/L (136-145); eGFR NON AFRICAN AMERICAN > 90 mL/min (90-120)
[2016-12-29 07:03] LABS: UREA NITROGEN 13 mg/dL (7-18)
--- NOTE | 2016-12-29 07:31 | NUR ---
RESTING QUIETLY IN BED CALL LIGHT IN REACH
--- NOTE | 2016-12-29 09:07 | NUR ---
MORNING MEDS GIVEN, PT TOLERATED WELL, PT STATES PAIN AT A 7, PAIN MED GIVEN , WILL CONTINUE TO MONITOR, CALL LIGHT WITHN REACH.
[2016-12-29 09:08] VITALS: BP 140/52
--- NOTE | 2016-12-29 10:07 | NUR ---
PT STATES PAIN BETTER, RATES AT A 3, PT IN THERAPY, WILL CONTINUE TO MONITOR.
--- NOTE | 2016-12-29 13:13 | NUR ---
PT RESTING QUIETLY IN BED, RESPIRATIONS EVEN, BED IN LOW POSITION, CALL LIGHT WITHIN REACH.
--- NOTE | 2016-12-29 15:24 | NUR ---
PT RESTING IN BED, AT BEDSIDE, PT STATES NO NEEDS AT THIS TIME, WILL CONTINUE TO MONITOR, CALL LIGHT WITHIN REACH.
--- NOTE | 2016-12-29 17:21 | NUR ---
PT RESTING QUIETLY IN BED, RESPIRATIONS EVEN, WILL CONTINUE TO MONITOR, CALL LIGHT WITHIN REACH.
--- NOTE | 2016-12-29 19:30 | NUR ---
PT RESTING QUIETLY, EYES CLOSED, RESPIRATIONS REGULAR AND UNLABORED. PT AROUSES, STATES SHE IS TIRED.
[2016-12-29 20:08] VITALS: BP 136/60
--- NOTE | 2016-12-30 02:30 | NUR ---
PT RESTING QUIETLY, NO S/S OF ACUTE DISTRESS.
--- NOTE | 2016-12-30 06:25 | NUR ---
PT RESTING QUIETLY, EYES CLOSED, RESPIRATIONS REGULAR AND UNLABORED. NO S/S OF ACUTE DISTRESS.
[2016-12-30 08:00] VITALS: BP 126/60
--- NOTE | 2016-12-30 08:00 | NUR ---
PATIENT ALERT/ORIENT X4 WITH SOME FORGETFULLNESS. CALL LIGHT WITHIN REACH. HELPED INTO BATHROOM. MOD ASST OF ONE PERSON FROM BED TO WHEELCHAIR AND WHEELCHAIR ONTO TOILET
--- NOTE | 2016-12-30 10:49 | NUR ---
PATIENT IN REHAB ROOM. WORKING WITH OCCUPATIONAL THERAPIST. STATES SOME RELIEF FROM PRN PAIN MEDICATION.
[2016-12-30 11:05] VITALS: Ht 172.7 cm; Wt 60.3 kg
--- NOTE | 2016-12-30 13:25 | NUR ---
PRN NORCO GIVEN FOR LEFT HIP PAIN. PATIENT HELPED BACK TO BED BY THIS NURSE. MOD ASST OF ONE.
--- NOTE | 2016-12-30 18:44 | NUR ---
RESTING QUIETLY IN BED CALL LIGHT IN REACH
--- NOTE | 2016-12-30 19:40 | NUR ---
pt awake in room, pt conversive, pt state she hates to get out of bed because it hurts. encouraged pt to wiggle toes. scds on and working without error messages.
--- NOTE | 2016-12-30 20:12 | NUR ---
ASSISTED PT TO BATHROOM, PT EMOTIONAL WHILE SITTING ON TOILET. PT COMPLETED ORAL CARE WITH SET UP ASSISTANCE.
[2016-12-30 21:39] VITALS: BP 146/59
--- NOTE | 2016-12-31 00:10 | NUR ---
pt states that her rash on her back itches, pt states I know I need to stop scrating it. left note for dr. morales.
[2016-12-31 06:12] LABS: BASOPHILS 0.2 % (0-2); EOSINOPHILS 3.9 % (0-7); HEMATOCRIT 29.7 % (36.0-48.0); HEMOGLOBIN 9.4 g/dL (12-16); IMMATURE GRANULOCYTES 0.2 % (0-5); MCH 28.7 pg (26.0-34.0); MCHC 31.6 g/dL (31.0-37.0); MCV 90.5 fL (80.0-100.0); MEAN PLATELET VOLUME 9.5 fL (7.4-10.4); MONOCYTES 11.6 % (2-11); NEUTROPHILS 66.1 % (40-80); RBC 3.28 10x6/uL (4.00-5.40); RDW 13.5 % (11.5-14.5); WBC 5.3 10x3/uL (4.8-10.8)
--- NOTE | 2016-12-31 06:15 | NUR ---
pt max assist with bed mobility, pt needs encouragement to assist. pt moans frequently.
[2016-12-31 06:23] LABS: PLATELET COUNT 273 10x3/uL (130-400)
[2016-12-31 06:31] LABS: CALC OSMOLALITY 279 mosm/kg (275-300); CALCIUM 9.7 mg/dL (8.5-10.1); CARBON DIOXIDE 28.9 mmol/L (21.0-32.0); CHLORIDE - SERUM 104 mmol/L (98-107); CREATININE - SERUM 0.6 mg/dL (0.6-1.3); GLUCOSE 100 mg/dL (74-106); POTASSIUM - SERUM 3.7 mmol/L (3.5-5.1); SODIUM 141 mmol/L (136-145); UREA NITROGEN 10 mg/dL (7-18); eGFR NON AFRICAN AMERICAN > 90 mL/min (90-120)
--- NOTE | 2016-12-31 07:50 | NUR ---
SITTING ON SIDE OF BED EATING BREAKFAST.CL IN REACH.
[2016-12-31 08:10] VITALS: BP 154/53
--- NOTE | 2016-12-31 08:13 | NUR ---
PRN ZOFRAN GIVEN FOR NAUSEA.
--- NOTE | 2016-12-31 10:15 | NUR ---
PATIENT HELPED WITH SHOWER FROM OCCUPATIONAL THERAPIST. DRESSING TO LEFT HIP REMOVED. SURGICAL CLIPS INTACK. NO DRAINAGE NOTED.
--- NOTE | 2016-12-31 13:14 | NUR ---
DR. Chandni MICHELLE HERE TO SEE PATIENT. CAREPLAN MEETING. NEW ORDERS RECEIVED
--- NOTE | 2016-12-31 13:36 | NUR ---
PRN PAIN MEDICATION GIVEN FOR LEFT HIP PAIN.
--- NOTE | 2016-12-31 15:34 | NUR ---
PATIENT USING CALL LIGHT TO USE BATHROOM. PATIENT IS A MIN ASST OF ONE FROM BED INTO WHEELCHAIR. STAFF PUSHES WHEELCHAIR TO BATHROOM. PATIENT ABLE TO TRANSFER SELF ON AND OFF OF TOILET WITHOUT HELP. PATIENT DOES OWN BRE CARE
--- NOTE | 2016-12-31 16:46 | NUR ---
CARE TEAM MEETING: PATIENT PARTICIPAITING IN THERAPY. SHE WILL BE RA AT NEXT MEETING. TENATIVE DC DATE IS 01/14/17. WILL CONTINUE TO FOLLOW WITH PATIENT UNTIL DISCHARGED
--- NOTE | 2016-12-31 17:49 | NUR ---
PATIENT IS ALERT/ORIENT WITH SHORT TERM MEMORY DEFICET.
[2016-12-31 19:07] VITALS: BP 144/51
--- NOTE | 2016-12-31 21:00 | NUR ---
PT EATING SHERBERT SITTING ON SIDE OF BED, PT SMILES AND STATES SHE IS ABLE TO SWING HER LEFT LEG WITHOUT IT HURTING. PT STATES SHE IS HAPPY. PT APPEARS TO HAVE SHORT TERM MEMORY DEFICIT.
--- NOTE | 2016-12-31 23:30 | NUR ---
ASSISTED PT TO BATHROOM, PT TRANSFERS WITH MIN ASSIST. UPON RETURNING TO BED, PT WAS TEARFUL, PT DID ARTICULATE WHY.
--- NOTE | 2017-01-01 03:50 | NUR ---
PT RESTING WITH EYES CLOSED, RESPIRATIONS REGULAR AND UNLABORED. NO S/S OF ACUTE DISTRESS.
--- NOTE | 2017-01-01 07:30 | NUR ---
PT IS RESTING IN BED WITH EYES OPEN. ALERT AND ORIENTED X 3. DENIES ACUTE DISCOMFORT AT THIS TIME. INCISION TO LEFT HIP IS CDI. ZACHARY ARE INTACT. NO DRAINAGE NOTED. PT ASSISTED UP TO THE BATHROOM WITH MOD ASSIST. VOIDED WITHOUT DIFFICULTY. SBA WITH TOILETING. PT ASSSITED BACK TO BED FOR BREAKFAST. FEEDING SELF WITHOUT DIFFICULTY. SR'S ARE UP X 3 IN BED. CALL LIGHT AND BEDSIDE TABLE ARE WITHIN EASY REACH.
--- NOTE | 2017-01-01 09:00 | NUR ---
SITTING UP DENIES NEEDS.
--- NOTE | 2017-01-01 09:39 | NUR ---
PT IS PARTICIPATING IN THERAPY AT THIS TIME.
[2017-01-01 11:34] VITALS: BP 133/53
--- NOTE | 2017-01-01 12:08 | RHP ---
PATIENT: LETICIA FLETCHER MEDICAL RECORD: [id number] ACCOUNT: [id number] LOCATION:[facility]1108 : 38 ADMISSION DATE: 12/28/16 REHABILITATION HISTORY AND PHYSICAL EXAMINATION POST ADMISSION PHYSICIAN EXAMINATION Post-Admission Physical Examination and History and Physical DATE OF ADMISSION: 12/28/2016 ADMITTING DIAGNOSIS: Acute left subcapital femoral neck fracture. HISTORY OF PRESENT ILLNESS: The patient is a 76-year-old female patient admitted to inpatient rehab, status post ORIF of her left hip. She was at hospital earlier on December 24 for liver biopsy ____ and tripped and fell injuring her left hip. X-ray and CT revealed an acute impacted nondisplaced subcapital left femoral neck fracture. She was admitted with ortho consult on December 25. She went to the OR for ORIF of the left hip. Postop, she went to the ICU for acute hypoxic respiratory failure secondary to pulmonary edema and possibly underlying pneumonia and rule out pulmonary embolus. Blood loss anemia was noted, she received 1 unit of packed red blood cells. COPD with acute exacerbation. She had a temp up to 101.8, acute mental status changes with postop delirium. After 2 days in the ICU, she was moved to the floor. Currently, she is alert and oriented, but anxious. She is afebrile, her H&H are stable. She previously independent with ADLs and mobility. Currently, she is mod to max assist for ADLs and mobility for short distances. She plans to return home with her spouse. COMORBIDITIES: In this patient include acute hypoxic respiratory failure, pulmonary edema, acute respiratory distress, hypoxia, acute blood loss anemia, hyperkalemia, status post ORIF of the left hip, postop delirium and lethargy, acute dyspnea, coronary artery disease, angina, recent falls, fatigue, weakness, hyperlipidemia, osteopenia. PAST MEDICAL HISTORY: Significant for anxiety and depression, got a history of angina, got a history of breast cancer, depression. PAST SURGICAL HISTORY: Includes cataract surgery and mastectomy greater than 25 years ago. ALLERGIES: No known drug allergies. CURRENT MEDICATIONS: Include Zocor 20 mg at bedtime, furosemide 20 mg daily, vitamin B12 of 1000 mcg daily, Plavix 75 mg daily, citalopram 10 mg daily, vitamin D daily. She is on Eliquis 2.5 mg b.i.d., Ventolin updrafts as needed, Tylenol 325 q.4 hours p.r.n. and polyethylene glycol 17 grams in 8 ounces of water daily. HABITS: No alcohol or tobacco use. FAMILY HISTORY: Noncontributory. SOCIAL HISTORY: The patient hopes to return back home with her spouse. REVIEW OF SYSTEMS: HISTORY AND PHYSICAL [id number] LETICIA FLETCHER GENERAL: She denies weakness or fatigue. HEENT: Denies cold, cough, or congestion. CARDIOVASCULAR: Denies chest pain. PHYSICAL EXAMINATION: VITAL SIGNS: Stable, afebrile. GENERAL: An elderly female in no distress upon exam. HEENT: Normocephalic, atraumatic. Mucosa moist. NECK: Supple, with no lymphadenopathy. LUNGS: Clear at this time. HEART: A regular rate and rhythm. She was a little bit bradycardic. ABDOMEN: Benign. EXTREMITIES: Consistent with hip replacement. NEUROLOGIC: Intact. LABORATORY DATA: Admit CBC here shows a white count of 6.1, H&H 9.4 and 29.5 and platelet count is 217. Her sodium is 142, potassium 3.4, BUN and creatinine of 13 and 0.6 and blood sugar is 107. ASSESSMENT: This is a 76-year-old female patient admitted to rehab with a working diagnosis of left femoral neck fracture status post open reduction internal fixation. The patient has potential to make improvement. We instituted the following multidisciplinary therapies including to, but not limited to physical, occupational, respiratory, speech, nutritional services, prosthetics and orthotics. Given her complex condition and risk for more complications, rehabilitation services cannot be provided at a low level of care such as a fpc facility. PLAN: 1. Admit to [facility] rehab for intensive inpatient therapy to include the following disciplines: A. Physical therapy to improve gait, all transfer skills and bed mobility to a modified independent level. B. Occupational therapy to improve activities of daily living to a modified independent level. C. Case management to assist with discharge planning and placement options. D. Nutrition to assist with nutritional needs. E. Rehabilitation nursing to assist in monitoring the patient's underlying medical conditions and to assist with any type of bowel or bladder management. 2. The patient's current medication and medical care will be continued. 3. The patient will be placed on standard fall precautions. 4. The patient's estimated length of stay is approximately 7-10 days. 5. We will watch her H&H closely. 6. We will discuss this patient at care team staff meeting this week. TRANSINT:[id number] Voice Confirmation ID: [id number] DOCUMENT ID: [id number] NICOLLE notes whether there has been none or any medical/functional change since admission: - NICOLLE attests patient continues to be appropriate for IRF: - HISTORY AND PHYSICAL [id number] LETICIA FLETCHER SCOTT MD at 1208 CC: [id number] DICTATION DATE: 12/29/16 0809 DESIGN SUPERVISOR: 12/29/16 1332 ADM IN [facility] [address] [place] [address]
--- NOTE | 2017-01-01 12:15 | NUR ---
PT IS RESTING IN HER ROOM AWAITING LUNCH. NO ACUTE DISTRESS NOTED.
--- NOTE | 2017-01-01 14:37 | NUR ---
PT IS RESTING IN BED WITH EYES OPEN. NO NEEDS VOICED.
--- NOTE | 2017-01-01 17:32 | NUR ---
PT IS SITTING ON THE SIDE OF HER BED EATING SUPPER. NO COMPLAINT VOICED.
--- NOTE | 2017-01-01 19:00 | NUR ---
PATIENT IN BED, AWAKE. DENIES NEEDS.
[2017-01-01 20:10] VITALS: BP 138/51
--- NOTE | 2017-01-01 20:40 | NUR ---
ASSESSMENT AND HS MEDS COMPLETE. NO DISTRESS NOTED.
--- NOTE | 2017-01-01 22:00 | NUR ---
RESTING QUIETLY IN BED, EYES CLOSED.
--- NOTE | 2017-01-02 | NUR ---
IN BED. AWOKE WHILE I WAS ASSISTING HER ROOMMATE TO BR. MRS. FLETCHER DENIES NEEDS AT THIS TIME.
--- NOTE | 2017-01-02 02:00 | NUR ---
CONTINUES IN BED, EYES CLOSED. SNORING SOFTLY.
--- NOTE | 2017-01-02 04:00 | NUR ---
RESTING QUIETLY IN BED, EYES CLOSED. RESPIRATIONS UNLABORED.
--- NOTE | 2017-01-02 05:20 | NUR ---
ASSISTED PATIENT UP TO BR TO URINATE. CHANGED PULL-UP BRIEF. PATIENT BRUSHED TEETH AND ON RETURN TO BED, GAVE HER NORCO 10/325 X1 TAB PO FOR PAIN LEVEL OF 7/10 IN LEFT HIP.
--- NOTE | 2017-01-02 06:00 | NUR ---
PATIENT AWAKE. JUST ARRIVED TO VISIT. DENIES CURRENT PAIN AT REST.
[2017-01-02 07:14] LABS: BASOPHILS 0.4 % (0-2); HEMATOCRIT 31.4 % (36.0-48.0); HEMOGLOBIN 9.9 g/dL (12-16); IMMATURE GRANULOCYTES 0.7 % (0-5); LYMPHOCYTES 15.7 % (15-50); MCHC 31.5 g/dL (31.0-37.0); MCV 92.1 fL (80.0-100.0); MEAN PLATELET VOLUME 9.4 fL (7.4-10.4); MONOCYTES 9.5 % (2-11); NEUTROPHILS 71.7 % (40-80); RBC 3.41 10x6/uL (4.00-5.40); RDW 13.9 % (11.5-14.5); WBC 5.6 10x3/uL (4.8-10.8)
[2017-01-02 07:16] LABS: PLATELET COUNT 329 10x3/uL (130-400)
[2017-01-02 07:29] LABS: CALC OSMOLALITY 281 mosm/kg (275-300); CALCIUM 10.1 mg/dL (8.5-10.1); CARBON DIOXIDE 28.3 mmol/L (21.0-32.0); CHLORIDE - SERUM 104 mmol/L (98-107); CREATININE - SERUM 0.7 mg/dL (0.6-1.3); GLUCOSE 111 mg/dL (74-106); POTASSIUM - SERUM 4.3 mmol/L (3.5-5.1); SODIUM 141 mmol/L (136-145); UREA NITROGEN 12 mg/dL (7-18); eGFR NON AFRICAN AMERICAN 86 mL/min (90-120)
--- NOTE | 2017-01-02 07:39 | NUR ---
RESTING QUIETLY IN BED CALL LIGHT IN REACH
--- NOTE | 2017-01-02 10:00 | NUR ---
PT IS PARTICIPATING IN THERAPY AT THIS TIME.
[2017-01-02 11:15] VITALS: BP 101/43
--- NOTE | 2017-01-02 15:22 | NUR ---
RESTING IN BED WITH EYES CLOSED.
--- NOTE | 2017-01-02 17:45 | NUR ---
PT RESTING IN HER ROOM AWAITING SUPPER DELIVERY. ASSISTED TO THE BATHROOM WITH SBA. VOIDED WITHOUT DIFFICULTY. PT REQUESTED A ICE PACK FOR PAIN CONTROL. ICE PACK MADE AND GIVEN TO PT.
[2017-01-02 19:08] VITALS: BP 141/60
--- NOTE | 2017-01-02 19:40 | NUR ---
RESTING IN BED, EYES CLOSED.
--- NOTE | 2017-01-02 21:10 | NUR ---
CURRENTLY RECEIVING R/T UPDRAFT. WILL RETURN FOR ASSESSMENT AND HS MEDS.
--- NOTE | 2017-01-02 22:05 | NUR ---
ASSISTED PATIENT UP TO BR TO URINATE, AND THEN BACK TO BED. ASSESSMENT AND HS MEDS COMPLETE. REFUSED SCHEDULED MIRALAX. SAYS SHE WANTS IT IN THE EARLY AM AND AT NOON DAILY, NOT AT NIGHT.
--- NOTE | 2017-01-03 | NUR ---
RSTING IN BED, EYES CLOSED. SNORING AT TIMES.
--- NOTE | 2017-01-03 01:50 | NUR ---
IN BED, EYES CLOSED. RESPIRING QUIETLY AT PRESENT.
--- NOTE | 2017-01-03 03:35 | NUR ---
ASSISTED PATIENT UP TO BR, AND THEN BACK TO BED. C/O PAIN LEVEL OF 5/10 IN LEFT HIP. GAVE HER NORCO 10 X1 TAB PO.
--- NOTE | 2017-01-03 04:45 | NUR ---
IN BED, EYES CLOSE. SNORING SOFTLY.
--- NOTE | 2017-01-03 07:25 | NUR ---
PT IS RESTING IN BED WITH EYES OPEN. ALERT AND ORIENTED X 3. VOICED URGENT NEED TO VOID. ASSISTED TO THE BATHROOM WITH SBA FOR ALL TASKS. ASSISTED BACK TO BED FOR BREAKFAST. FEEDING SELF WITHOUT DIFFICULTY. INCISION TO LEFT HIP IS CDI. ZACHARY ARE INTACT. NO DRAINAGE NOTED. SR'S ARE UP X 3 IN BED. CALL LIGHT AND BEDSIDE TABLE ARE WITHIN EASY REACH.
[2017-01-03 07:43] VITALS: BP 133/80
--- NOTE | 2017-01-03 09:45 | NUR ---
PT IS RESTING IN BED AWAITING THERAPY. NO NEEDS VOICED.
--- NOTE | 2017-01-03 11:38 | NUR ---
PT IS IN THE BATHROOM DOING A SPONGE BATH AT THE SINK WITH ASSIST FROM HER . NO NEEDS VOICED.
--- NOTE | 2017-01-03 14:17 | NUR ---
PT RESTING IN BED WITH EYES OPEN. NO ACUTE DISTRESS NOTED.
--- NOTE | 2017-01-03 16:31 | NUR ---
PT ASSISTED TO THE BATHROOM WITH SBA. VOIDED WITHOUT DIFFICULTY. NO NEEDS VOICED.
--- NOTE | 2017-01-03 18:27 | NUR ---
RESTING QUIETLY IN BED CALL LIGHT IN REACH
[2017-01-03 19:00] VITALS: BP 148/50
--- NOTE | 2017-01-03 19:00 | NUR ---
PATIENT IN BED, AWAKE. DENIES CURRENT NEEDS.
--- NOTE | 2017-01-03 19:50 | NUR ---
IN BED, AWAKE. NO COMPLAINTS AT THIS TIME.
--- NOTE | 2017-01-03 22:15 | NUR ---
ASSESSMENT AND HS MEDS COMPLETE. REFUSED MIRALAX. DOES NOT WANT TO TAKE IT AT NIGHT. GAVE PATIENT NORCO 10/325 X1 TAB PO FOR PAIN LEVEL OF 6/10 IN NECK, SHOULDERS AND LEFT HIP. ASSISTED HER UP TO BR TO URINATE AND CHANGE HER PULL-UP. PATIENT DECIDED TO LEAVE HER PJ BOTTOMS OFF FOR THE NIGHT. RETURNED HER TO BED.
--- NOTE | 2017-01-03 23:30 | NUR ---
RESTING QUIETLY IN BED, EYES CLOSED.
--- NOTE | 2017-01-04 02:00 | NUR ---
IN BED, EYES CLOSED. LYING IN PARTIAL RIGHT SIDELYING POSITION WITH HOB ELEVATED 20 DEGREES.
--- NOTE | 2017-01-04 04:40 | NUR ---
IN BED, EYES CLOSED. SNORING SOFTLY.
--- NOTE | 2017-01-04 06:00 | NUR ---
RESTING QUIETLY IN BED, EYES CLOSED.
[2017-01-04 08:00] VITALS: BP 141/63
--- NOTE | 2017-01-04 08:29 | NUR ---
SITTING UP EATING BREAKFAST DENIES NEEDS CALL LIGHT IN REACH
--- NOTE | 2017-01-04 09:55 | NUR ---
PT ASSISTED UP TO THE BATHROOM WITH SBA. VOIDED WITHOUT DIFFICULTY. PT ASSISTED INTO THE SHOWER AFTERWARDS. SHOWERED WITH MIN ASSIST. MOD ASSIST TO DRY OFF AND DRESS AFTERWARDS. MOD ASSIST TO GET LEGS BACK INTO THE BED. CLIPS TO LEFT HIP ARE CDI. NO DRAINAGE NOTED.
--- NOTE | 2017-01-04 12:33 | NUR ---
PT RESTING IN BED FEEDING SELF LUNCH. NO DISTRESS NOTED.
--- NOTE | 2017-01-04 15:00 | NUR ---
PT IS RESTING IN BED WATCHING TV. NO NEEDS VOICED.
--- NOTE | 2017-01-04 17:28 | NUR ---
PT IS FEEDING SELF SUPPER IN HER ROOM SITTING IN HER WC. NO NEEDS VOICED.
--- NOTE | 2017-01-04 19:30 | NUR ---
PT VERY UPSET THAT SHE HAS HAD NO THERAPY FOR TWO DAYS, SHE STATES IF SHE DOEN'T HAVE THERAPY TOMORROW SHE WANTS TO GO HOME AND HAVE THERAPY THERE. PT AGITATED, CALMED PATIENT AND VERIFIED THAT TOMORROW SHE WOULD HAVE THERAPY.
[2017-01-05 02:28] VITALS: BP 146/56
--- NOTE | 2017-01-05 04:42 | NUR ---
PT C/O OF LEFT KNEE PAIN, APPLIED ICE PACK. PT STATES SHE HAS SLEPT VERY WELL FOR AT LEAST 6 HOURS.
--- NOTE | 2017-01-05 06:39 | NUR ---
PT RESTING QUIETLY, NO S/S OF ACUTE DISTRESS, EYES CLOSED, RESPIRATIONS REGULAR AND UNLABORED.
[2017-01-05 07:35] LABS: BASOPHILS 0.3 % (0-2); EOSINOPHILS 2.3 % (0-7); HEMATOCRIT 31.4 % (36.0-48.0); HEMOGLOBIN 9.9 g/dL (12-16); IMMATURE GRANULOCYTES 0.5 % (0-5); LYMPHOCYTES 26.4 % (15-50); MCH 28.9 pg (26.0-34.0); MCHC 31.5 g/dL (31.0-37.0); MCV 91.8 fL (80.0-100.0); MEAN PLATELET VOLUME 9.2 fL (7.4-10.4); MONOCYTES 8.3 % (2-11); NEUTROPHILS 62.2 % (40-80); PLATELET COUNT 376 10x3/uL (130-400); RBC 3.42 10x6/uL (4.00-5.40); RDW 13.9 % (11.5-14.5); WBC 6.1 10x3/uL (4.8-10.8)
[2017-01-05 07:52] LABS: CALC OSMOLALITY 279 mosm/kg (275-300); CALCIUM 10.2 mg/dL (8.5-10.1); CARBON DIOXIDE 27.3 mmol/L (21.0-32.0); CHLORIDE - SERUM 106 mmol/L (98-107); CREATININE - SERUM 0.6 mg/dL (0.6-1.3); GLUCOSE 96 mg/dL (74-106); POTASSIUM - SERUM 4.1 mmol/L (3.5-5.1); SODIUM 141 mmol/L (136-145); UREA NITROGEN 9 mg/dL (7-18); eGFR NON AFRICAN AMERICAN > 90 mL/min (90-120)
--- NOTE | 2017-01-05 08:00 | NUR ---
PT RESTING IN BED WITH EYES OPEN CALL LIGHT IN REACH WILL MONITER
--- NOTE | 2017-01-05 08:14 | NUR ---
SITTING UP EATING BREAKFAST DENIES NEEDS CALL LIGHT IN REACH
[2017-01-05 12:18] VITALS: BP 142/79
--- NOTE | 2017-01-05 16:29 | NUR ---
PT RESTING IN BED WITH EYES OPEN CALL LIGHT IN REACH NO PROBLEMS WILL MONITER
[2017-01-05 18:59] VITALS: BP 137/48
--- NOTE | 2017-01-05 19:20 | NUR ---
PT LYING IN BED, REQUESTING PAIN MEDICATION, STATES SHE REALLY ENJOYED HER THERAPY TODAY. WILL MEDICATE FOR PAIN PER HER REQUEST.
--- NOTE | 2017-01-06 03:58 | NUR ---
PT RESTING QUIETLY, NO S/S OF ACUTE DISTRESS.
[2017-01-06 05:38] LABS: BASOPHILS 0.4 % (0-2); EOSINOPHILS 3.5 % (0-7); HEMATOCRIT 31.6 % (36.0-48.0); HEMOGLOBIN 9.9 g/dL (12-16); IMMATURE GRANULOCYTES 0.2 % (0-5); LYMPHOCYTES 22.1 % (15-50); MCH 28.7 pg (26.0-34.0); MCHC 31.3 g/dL (31.0-37.0); MCV 91.6 fL (80.0-100.0); MEAN PLATELET VOLUME 9.1 fL (7.4-10.4); MONOCYTES 10.2 % (2-11); NEUTROPHILS 63.6 % (40-80); PLATELET COUNT 352 10x3/uL (130-400); RBC 3.45 10x6/uL (4.00-5.40); RDW 13.8 % (11.5-14.5); WBC 5.1 10x3/uL (4.8-10.8)
[2017-01-06 05:50] LABS: CALC OSMOLALITY 279 mosm/kg (275-300); CALCIUM 10.5 mg/dL (8.5-10.1); CARBON DIOXIDE 28.8 mmol/L (21.0-32.0); CHLORIDE - SERUM 105 mmol/L (98-107); CREATININE - SERUM 0.6 mg/dL (0.6-1.3); GLUCOSE 102 mg/dL (74-106); POTASSIUM - SERUM 3.7 mmol/L (3.5-5.1); SODIUM 141 mmol/L (136-145); UREA NITROGEN 10 mg/dL (7-18); eGFR NON AFRICAN AMERICAN > 90 mL/min (90-120)
[2017-01-06 10:31] VITALS: BP 147/69
--- NOTE | 2017-01-06 15:07 | NUR ---
PT RESTING IN BED WITH EYES OPEN CALL LIGHT IN REACH WILL MONITER
--- NOTE | 2017-01-06 15:14 | NUR ---
NUTRITION MONITORING & EVAL CHART REVIEWED. REG DIET. RECENT PO INTAKE VARIES FROM 25 TO 100% OF MEALS. WILL CONTINUE TO PROVIDE DIET, HONOR FOOD PREFERENCES. RD FOLLOWING
--- NOTE | 2017-01-06 18:15 | NUR ---
DENIES NEEDS.CL IN REACH.
--- NOTE | 2017-01-06 18:55 | NUR ---
PATIENT JUST RETURNED FROM TOILETING AT [facility]. DID NOT CALL FOR ASSIST FOR SBA ON TRANSFER.
--- NOTE | 2017-01-06 20:05 | NUR ---
ASSESSMENT AND HS MEDS COMPLETE. PATIENT REFUSED MIRALAX. SAYS WILL NOT TAKE AT BEDTIME. WASN SCHEDULED FOR 0600 AND 1600 HRS DAILY.
[2017-01-06 20:09] VITALS: BP 127/49
--- NOTE | 2017-01-06 22:50 | NUR ---
ASSISTED PATIENT UP TO BR. REQUESTED, AND WAS GIVEN ONDANSETRON 4MG PO FOR C/O NAUSEA. GAE IT TO HER WITH VERY WARM WATER SHE C/O HIATAL HERNIA AND DIFFICULTY GETTING PILLS DOWN WITH ICE WATER. PATIENT SAID THE WARM WATER SEEMED TO HELP.
--- NOTE | 2017-01-07 00:15 | NUR ---
IN BED, EYES CLOSED. RESTING QUIETLY.
--- NOTE | 2017-01-07 02:20 | NUR ---
CONTINUES IN BED, EYES CLOSED
--- NOTE | 2017-01-07 04:20 | NUR ---
IN BED, EYES CLOSED LYING IN PARTIAL RIGHT SIDELYING. RESPIRATIONS ARE CURRENTLY QUIET AND UNLABORED.
--- NOTE | 2017-01-07 06:00 | NUR ---
PATIENT WAS RECENTLY ASSISTED UP TO BR TO URINATE. SET HER UP TO CHANGE HER CLOTHING, WHICH SHE HAS ACCOMPLISHED. CURRENTLY AT THE SINK PERFORMING MORNING ADL'S.
--- NOTE | 2017-01-07 07:59 | NUR ---
SITTING ON SIDE OF BED.EATING BREAKFAST.CL IN REACH.
[2017-01-07 09:25] VITALS: BP 142/60
--- NOTE | 2017-01-07 09:43 | NUR ---
PT IS PARTICIPATING IN THERAPY AT THIS TIME.
--- NOTE | 2017-01-07 12:00 | NUR ---
PT ASSISTED TO THE BATHROOM WITH SBA. NO FURTHER NEEDS VOICED.
--- NOTE | 2017-01-07 15:00 | NUR ---
EVERY OTHER STAPLE REMOVED FROM LEFT HIP INCISION. STERI STRIPS APPLIED. INCISION IS WELL APPROXIMATED. NO DRAINAGE NOTED. PT TOLERATED PROCEDURE WELL.
--- NOTE | 2017-01-07 16:50 | NUR ---
CARE TEAM MEETING: PATIENT AND SPOUSE ATTENDED MEETING.PLANS ARE FOR PATIENT TO DISCHARGE HOME 01/09/17. SHE WILL BE IN NEED OF A ROLLING WALKER AND WOULD LIKE HOME HEALTH. WILL CONTINUE TO FOLLOW WITH PATIENT UNTIL DISCHARGED
--- NOTE | 2017-01-07 17:47 | NUR ---
PT FEEDING SELF SUPPER IN HER ROOM. NO NEEDS VOICED.
[2017-01-07 18:58] VITALS: BP 107/44
--- NOTE | 2017-01-07 19:10 | NUR ---
PATIENT IN BED. JUST RETURNED FROM BR. ASSISTED HER INTO BED. DENIES CURRENT NEEDS.
--- NOTE | 2017-01-07 21:50 | NUR ---
ASSISTED PATIENT UP TO BR TO URINATE AND THEN BACK TO BED. ASSESSMENT AND HS MEDS ARE NOW COMPLETE. GAVE PATIENT NORCO 10/325 X1 TAB PO FOR PAIN LEVEL OF 5/10 IN LEG HIP. PATIENT IS A BIT IRRITABLE TONIGHT.
--- NOTE | 2017-01-08 00:10 | NUR ---
RESTING IN BED, EYES CLOSED. SNORING SOFTLY.
--- NOTE | 2017-01-08 01:55 | NUR ---
IN BED, LYING PARTIALLY ON RIGHT SIDE. APPEARS COMFORTABLE.
--- NOTE | 2017-01-08 04:00 | NUR ---
ASSISTED PATIENT UP TO BR COMMODE TO URINATE AND BACK TO BED. C/O LEFT HIP PAIN OF LEVEL 5/10. GAVE HER NORCO X1 TAB PO. INVITED HER TO TAKE HER 0600-SCHEDULED MIRALAX SO SHE WOULD NOT HAVE TO BE AWAKENED THEN, BUT SHE DECLINED.
--- NOTE | 2017-01-08 04:48 | NUR ---
UNABLE TO OBTAIN PATIENT'S STANDING WEIGHT. SAYS HE CANNOT STAND STABLY ENOUGH ON SCALE WITHOUT SUPPORT WHICH WILL AFFECT THE RESULT.
--- NOTE | 2017-01-08 05:30 | NUR ---
AWOKE PATIENT AND GAVE HER SCHEDULED MIRALAX MIXED IN CRANAPPLE JUICE. SAYS SHE HAS BEEN RESTING VERY COMFORTABLE SINCE EARLIER RECEIVING NORCO FOR PAIN.
--- NOTE | 2017-01-08 06:45 | NUR ---
RESTING QUIETLY IN BED CALL LIGHT IN REACH
[2017-01-08] MEDS ORDERED: HYDROCODONE-APA1 TAB PO (09:02)
--- NOTE | 2017-01-08 09:10 | NUR ---
PT RESTING IN HER ROOM AWAITING THERAPY THIS AM. NO ACUTE DISTRESS NOTED. INCISION TO LEFT HIP IS CDI. NO DRAINAGE NOTED. CLIPS AND STERI STRIPS ARE CDI. NO DRAINAGE NOTED. PT ASSISTED TO THE BATHROOM WITH SBA. VOIDED WITHOUT DIFFICULTY. SR'S ARE UP X 3 WHILE IN BED. CALL LIGHT AND BEDSIDE TABLE ARE WITHIN EASY REACH.
[2017-01-08 10:35] VITALS: BP 127/68
--- NOTE | 2017-01-08 11:00 | NUR ---
PT IS PARTICIPATING IN THERAPY AT THIS TIME.
--- NOTE | 2017-01-08 13:12 | NUR ---
PT IS RESTING IN BED AWAITING AFTERNOON THERAPY. NO DISTRESS NOTED.
--- NOTE | 2017-01-08 17:49 | NUR ---
PT IS RESTING IN BED WITH EYES CLOSED. NO DISTRESS NOTED.
--- NOTE | 2017-01-08 19:00 | NUR ---
PATIENT UP IN W/C. CURRENTLY WHEELING HER TO BR.
[2017-01-08 19:10] VITALS: BP 159/66
--- NOTE | 2017-01-08 21:45 | NUR ---
ASSISTED PATIENT UP TO BR AND BACK TO BED. ASSESSMENT THEN COMPLETED. TOOK HS MEDS, BUT REFUSED MIRALAX SHE HAD HAD 2 DOSES ALREADY TODAY. DISCOVERED DUPLICATE ORDER AND SUBSEQUENTLY DISCONTINUED IT. GAVE HER NORCO 10/325 X1 TAB PO FOR PAIN LEVEL OF 7/10 IN LOW BACK AND LEFT HIP.
--- NOTE | 2017-01-09 00:10 | NUR ---
RESTING IN BED ON RIGHT SIDE, HOB UP 30 DEGREES. APPEARS COMFORTABLE.
--- NOTE | 2017-01-09 02:20 | NUR ---
ASSISTED PATIENT UP TO BR VIA W/C. WILL CALL WHEN FINISHED.
--- NOTE | 2017-01-09 04:50 | NUR ---
RESTING IN BED, EYES CLOSED. RESPIRATIONS UNLABORED.
--- NOTE | 2017-01-09 06:05 | NUR ---
REFUSED SCHEDULED MIRALAX. NOW ASSISTING HER UP TO BR. PATIENT DECLINES TO DRESS NOW, ASKED HER TO ASSIST HER WITH DRESSING BY TIME OF BREAKFAST @ 0800.
--- NOTE | 2017-01-09 07:28 | NUR ---
PT IS RESTING IN BED VISITING WITH HER SPOUSE. NO COMPLAINT VOICED. LEFT HIP INCISION IS HEALING WELL. EVERY OTHER STAPLE IS INTACT WITH STERI STRIPS IN BETWEEN. SR'S ARE UP X 2 IN BED. CALL LIGHT AND BEDSIDE TABLE ARE WITHIN EASY REACH.
[2017-01-09 07:55] VITALS: BP 145/60
--- NOTE | 2017-01-09 10:01 | NUR ---
REMAINING 14 ZACHARY REMOVED FROM PTS LEFT HIM AND STERI STRIPS APPLIED. PT TOLERATED PROCEDURE WELL. INCISION IS HEALING WELL. NO DRAINAGE NOTED.
--- NOTE | 2017-01-09 10:39 | NUR ---
PATIENT DISCHARGING HOME TODAY WITH SPOUSE. [facility] WILL FOLLOW WITH PATIENT. MARYANN CASTAÑEDA. APPOINTMENTS: DR. JOHNSON 01/26/17 @ 11:00, PATIENT INSTRUCTED TO CALL DR. BUSTOS OFFICE FOR AN APPOINTMENT THURSDAY DUE TO OFFICE BEING CLOSED.PATIENT CHOICE FORM FOR HOME HEALTH AND [facility] FORM SIGNED AND FILED IN CHART. ORDERS HAVE BEEN FAXED WITH CONFORMATION RECIEVED
--- NOTE | 2017-01-09 11:08 | NUR ---
PT GIVEN HER DC INSTRUCTIONS WITH VERBAL UNDERSTANDING TO ALL VOICED. PT DEPARTED UNIT VIA WC PROPELLED BY STAFF WITH ALL BELONGINGS. DEPARTED GROUNDS VIA POV DRIVEN BY HER .
== END 2017-01-09 11:13 | disposition home health service (06) | DRG 560 ==
LOC: D.REHAB 13:46
PROVIDERS: ADMIT Emergency Medicine
DX: S72.012D Unspecified intracapsular fracture of left femur, subsequent encounter for closed fracture with routine healing (principal); D62 Acute posthemorrhagic anemia; J96.10 Chronic respiratory failure, unspecified whether with hypoxia or hypercapnia; E87.5 Hyperkalemia; I25.119 Atherosclerotic heart disease of native coronary artery with unspecified angina pectoris; R53.83 Other fatigue; R53.1 Weakness; E78.5 Hyperlipidemia, unspecified; M85.80 Other specified disorders of bone density and structure, unspecified site; Z85.3 Personal history of malignant neoplasm of breast